=== PATIENT | female | born 1985 | race Caucasian/White ===

== ENCOUNTER 2019-10-15 21:45 | Inpatient (IN) ==
[2019-10-15] MEDS ORDERED: SODIUM CHLORIDE 0.9% 1,000 ML IV STA (22:05)
[2019-10-15 22:50] LABS: Basophils # 0.1 10*3/uL (0.0-0.2); Basophils % 0.3 % (0.0-0.8); Hematocrit 39.8 VOL% (35.7-47.0); Hemoglobin 13.5 GM/DL (12.0-16.0); Immature Granulocytes % 0.5 %; Immature Granulocytes Absolute 0.11 #; Lymphocytes # 3.1 10*3/uL (1.4-4.0); Lymphocytes % 13.9 % (21.3-54.2); Mean Corpuscular HGB Conc 33.9 GM/DL (32-36); Mean Corpuscular Volume 89.2 FL (87-102); Mean Platelet Volume 11.6 FL (9.6-12.0); Monocytes % 11.2 % (1.7-12.7); Neutrophils % 74.1 % (38.7-73.9); Platelet Count 403 T/CUMM (130-400); Red Blood Count 4.46 MC/CUMM (3.8-5.5); Red Cell Distribution Width 13.2 % (9.3-17.3)
[2019-10-15 22:59] LABS: Apearance,Urine Slightly Hazy (Clear); Bacteria,Urine Occasional /HPF (Few); Bilirubin,Urine Negative (Negative); Blood, Urine Negative (Negative); Glucose,Urine (UA) Negative (Negative); Hyaline Casts,Urine 1 /LPF (0-3); Ketones,Urine 80 mg/dL (Negative); Mucus,Urine Occasional /LPF (Occasional); Nitrite,Urine Negative (Negative); Protein,Urine 30 MG/DL; RBC,Urine 2 /HPF (0-4); Squamous Epithelial Cell,Urine Occasional /HPF (0-10); Urine Color Amber (Yellow); Urine Specific Gravity 1.026 (1.001-1.035); WBC,Urine 3 /HPF (0-6)
[2019-10-15 23:05] LABS: Barbiturates Screen,Urine Negative (Negative); Benzodiazepines Screen,Urine Positive (Negative); Cannabinoid Screen,Urine Positive (Negative); Opiate Screen,Urine Negative (Negative); Phencyclidine Screen,Urine Negative (Negative)
[2019-10-15] MEDS ORDERED: AZITHROMYCIN INJ 500 MG in SODIUM CHLORIDE 0.9% 250 ML IV STA (23:18)
[2019-10-15] MEDS ORDERED: ALBUTEROL NEB SOLN 5 MG/ML 20 ML/BOTTLE CONT NEB STA (23:18)
[2019-10-15] MEDS ORDERED: cefTRIAXone 1,000 MG in SODIUM CHLORIDE 0.9% 100 ML IV STA (23:18)
[2019-10-15] MEDS ORDERED: methylPREDNISolone SOD SUC 125 MG/2 ML VIAL IV STA (23:18)
[2019-10-15 23:23] LABS: Lymphocytes 12 % (20-55); Segmented Neutrophils 78 % (50-85); Total Cells Counted 100
[2019-10-15 23:24] LABS: Platelet Estimate Normal
[2019-10-15 23:25] LABS: Hypochromasia 1+
[2019-10-15 23:28] LABS: Anisocytosis Slight
[2019-10-15 23:56] LABS: Acetaminophen < 2.0 UG/ML (10-30); Salicylate < 2.8 MG/DL (2.8-20)
[2019-10-15 23:58] LABS: Alanine Aminotransferase 60 U/L (13-56); Albumin 3.6 G/DL (3.4-5.0); Alkaline Phosphatase 95 U/L (45-117); Aspartate Amino Transferase 106 U/L (0-37); Blood Urea Nitrogen 20 MG/DL (7-18); Estimated Glom Filtration Rate 92 ML/MIN; Glucose 101 MG/DL (74-106); Osmolality,Calculated 270.2 MOS/KG (273-304); Total Protein 7.1 G/DL (6.4-8.3)
[2019-10-16] MEDS ORDERED: POTASSIUM BICARB EFFERVESCENT 25 MEQ TABLET PO ONE
[2019-10-16] MEDS ORDERED: ONDANSETRON 4 MG/2 ML VIAL IV PRN (03:12)
[2019-10-16] MEDS: LORazepam 2 MG/1 ML VIAL IV PRN ×2 (04:05→19:12)
[2019-10-16] MEDS: SODIUM CHLOR 0.45% KCL 20 MEQ 20 MEQ/1,000 ML BAG IV SCH ×4 (04:31→22:59)
[2019-10-16] MEDS: PIPERACILLIN/TAZOBACTAM 3,375 MG in SODIUM CHLORIDE 0.9% 100 ML IV SCH ×3 (04:31→20:12)
[2019-10-16 07:48] LABS: Basophils % 0.2 % (0.0-0.8); Hematocrit 34.3 VOL% (35.7-47.0); Immature Granulocytes % 0.6 %; Immature Granulocytes Absolute 0.08 #; Lymphocytes # 0.6 10*3/uL (1.4-4.0); Lymphocytes % 4.2 % (21.3-54.2); Mean Corpuscular HGB Conc 33.2 GM/DL (32-36); Mean Platelet Volume 11.8 FL (9.6-12.0); Monocytes % 1.7 % (1.7-12.7); Neutrophils % 93.3 % (38.7-73.9); Platelet Count 376 T/CUMM (130-400); Red Blood Count 3.81 MC/CUMM (3.8-5.5)
[2019-10-16 07:54] LABS: Hemoglobin 11.4 GM/DL (12.0-16.0); White Blood Count 13.3 T/CUMM (4-12)
[2019-10-16 08:00] LABS: Albumin 3.4 G/DL (3.4-5.0); Calcium 8.3 MG/DL (8.5-10.1); Osmolality,Calculated 273.1 MOS/KG (273-304); Total Protein 6.6 G/DL (6.4-8.3)
[2019-10-16 08:15] LABS: Band Neutrophils 1 % (0-10); Hypochromasia 1+; Lymphocytes 2 % (20-55); Platelet Estimate Normal; Segmented Neutrophils 96 % (50-85); Total Cells Counted 100
[2019-10-16] MEDS: ENOXAPARIN 40 MG/0.4 ML SYRINGE SUBCUT SCH (08:59)
[2019-10-16] MEDS: POTASSIUM CHLORIDE 20 MEQ TABLET PO PRN ×5 (09:00→23:00)
[2019-10-17] MEDS: POTASSIUM CHLORIDE 20 MEQ TABLET PO PRN ×3 (01:04→08:55)
[2019-10-17] MEDS: PIPERACILLIN/TAZOBACTAM 3,375 MG in SODIUM CHLORIDE 0.9% 100 ML IV SCH ×3 (05:06→21:21)
[2019-10-17] MEDS: SODIUM CHLOR 0.45% KCL 20 MEQ 20 MEQ/1,000 ML BAG IV SCH ×3 (06:33→15:07)
[2019-10-17 06:43] LABS: Basophils % 0.2 % (0.0-0.8); Eosinophils # 0.1 10*3/uL (0.0-0.87); Eosinophils % 0.8 % (0.00-10.9); Hematocrit 29.4 VOL% (35.7-47.0); Hemoglobin 9.7 GM/DL (12.0-16.0); Immature Granulocytes % 0.5 %; Immature Granulocytes Absolute 0.06 #; Lymphocytes # 2.7 10*3/uL (1.4-4.0); Lymphocytes % 20.6 % (21.3-54.2); Mean Corpuscular Volume 91.3 FL (87-102); Mean Platelet Volume 12.2 FL (9.6-12.0); Monocytes % 9.2 % (1.7-12.7); Neutrophils % 68.7 % (38.7-73.9); Platelet Count 349 T/CUMM (130-400); Red Blood Count 3.22 MC/CUMM (3.8-5.5); Red Cell Distribution Width 13.3 % (9.3-17.3); White Blood Count 13.1 T/CUMM (4-12)
[2019-10-17 07:00] LABS: Albumin 2.8 G/DL (3.4-5.0); Bilirubin,Total 1.2 MG/DL (0.2-1.0); Osmolality,Calculated 277.5 MOS/KG (273-304); Total Protein 5.7 G/DL (6.4-8.3)
[2019-10-17] MEDS: ENOXAPARIN 40 MG/0.4 ML SYRINGE SUBCUT SCH (08:55)
[2019-10-17] MEDS ORDERED: LORazepam 2 MG/1 ML VIAL IV PRN (15:19)
[2019-10-18] MEDS: PIPERACILLIN/TAZOBACTAM 3,375 MG in SODIUM CHLORIDE 0.9% 100 ML IV SCH ×2 (04:31→12:12)
[2019-10-18 05:07] LABS: Basophils % 0.4 % (0.0-0.8); Eosinophils # 0.3 10*3/uL (0.0-0.87); Eosinophils % 3.3 % (0.00-10.9); Hematocrit 31.4 VOL% (35.7-47.0); Hemoglobin 10.1 GM/DL (12.0-16.0); Immature Granulocytes % 0.1 %; Immature Granulocytes Absolute 0.01 #; Lymphocytes # 3.6 10*3/uL (1.4-4.0); Lymphocytes % 42.3 % (21.3-54.2); Mean Corpuscular HGB Conc 32.2 GM/DL (32-36); Mean Corpuscular Volume 92.6 FL (87-102); Mean Platelet Volume 11.9 FL (9.6-12.0); Neutrophils % 42.9 % (38.7-73.9); Platelet Count 367 T/CUMM (130-400); Red Blood Count 3.39 MC/CUMM (3.8-5.5); Red Cell Distribution Width 13.6 % (9.3-17.3); White Blood Count 8.5 T/CUMM (4-12)
[2019-10-18 05:27] LABS: Calcium 8.2 MG/DL (8.5-10.1); Osmolality,Calculated 277.3 MOS/KG (273-304)
[2019-10-18] MEDS: SODIUM CHLOR 0.45% KCL 20 MEQ 20 MEQ/1,000 ML BAG IV SCH ×2 (12:11→12:12)
[2019-10-18] MEDS: ENOXAPARIN 40 MG/0.4 ML SYRINGE SUBCUT SCH (12:13)
[2019-10-18 15:54] VITALS: BP 115/61
== END 2019-10-18 17:43 | disposition home or self-care (01) | DRG 179 ==
LOC: EDBD → EDUNIT# → N.ED 21:45 → SUATTDRO 10-16 03:35 → N.EDINP 10-16 03:35 → N.ICU 10-16 03:37 → N.2E 10-17 18:31
PROVIDERS: ADMIT Internal Medicine; ATTEND Internal Medicine